=== PATIENT | female | born 1965 ===

== ENCOUNTER 2017-09-23 08:47 | Emergency (ER) | payer MEDICAID ==
[2017-09-23 08:55] VITALS: BP 106/68; PULSE 70; RESP 18; TEMP 97.9; O2SAT 98
--- NOTE | 2017-09-23 09:04 | C.PDOC ---
History Of Present Illness 52 y/o female presents to the ER complaining of a small, fleshy abnormality in the skin of her epigastric region which has been present for the past 2 weeks. Patient reports that she has a history of elective abdominoplasty. Patient denies having other complaints at this time. Time Seen by Provider: 09/23/17 08:58 Chief Complaint (Nursing): Abnormal Skin Integrity History Per: Patient History/Exam Limitations: no limitations Onset/Duration Of Symptoms: Days Current Symptoms Are (Timing): Still Present Severity: Moderate Past Medical History Reviewed: Historical Data, Nursing Documentation, Vital Signs Vital Signs: Last Vital Signs Temp 97.9 F 09/23/17 08:52 Pulse 70 09/23/17 08:52 Resp 18 09/23/17 09:15 BP 106/68 09/23/17 08:52 Pulse Ox 98 09/23/17 12:23 - Medical History PMH: Asthma, HTN Other Surgeries: Hx of surgeries - [facility] Procedures OTHER SKIN & SUBQ I D (11/15/13) Family History: States: No Known Family Hx - Social History Hx Tobacco Use: No Hx Alcohol Use: No Hx Substance Use: No - Immunization History Hx Tetanus Toxoid Vaccination: Yes Hx Influenza Vaccination: No Hx Pneumococcal Vaccination: No Review Of Systems Except As Marked, All Systems Reviewed And Found Negative. Constitutional: Negative for: Fever, Chills Skin: Positive for: Other (small, fleshy abnorml skin growth in epigastric region) Physical Exam - Physical Exam Appears: Non-toxic, No Acute Distress Skin: Normal Color, Warm Head: Atraumatic, Normacephalic Eye(s): bilateral: Normal Inspection Nose: Normal Oral Mucosa: Moist Neck: Supple Chest: Symmetrical Gastrointestinal/Abdominal: Soft, No Tenderness, Other (normal surgical bikini line, relocated umbilicus, small 2x2 cm fleshy, nontender nodule in epigastrium) Neurological/Psych: Oriented x3, Normal Speech, Normal Motor, Normal Sensation ED Course And Treatment O2 Sat by Pulse Oximetry: 98 Medical Decision Making Medical Decision Making: small lipoma vs scar from prior tummy tuck benign for weeks/years LOW susp of infection ok to f/u in Clinic. Disposition Doctor Will See Patient In The: Office Counseled Patient/Family Regarding: Studies Performed, Diagnosis - Disposition Referrals: Tyrell Schafer MD [Medical Doctor] - Disposition: HOME/ ROUTINE Disposition Time: 09:03 Condition: GOOD Additional Instructions: sigue observando la cosa- aparece shahriar lipoma Sigue con mendez medico o' [facility]) Instructions: Lipoma Forms: [employer] (Amharic) Print Language: [place] CITIZEN - Clinical Impression Clinical Impression: Lipoma - Scribe Statement The provider has reviewed the documentation as recorded by the Renetta Sanchez Provider Attestation: All medical record entries made by the Renetta were at my direction and personally dictated by me. I have reviewed the chart and agree that the record accurately reflects my personal performance of the history, physical exam, medical decision making, and the department course for this patient. I have also personally directed, reviewed, and agree with the discharge instructions and disposition.
== END 2017-09-23 09:16 | disposition home or self-care (01) ==
LOC: C.ER 08:47
DX: D17.1 Benign lipomatous neoplasm of skin and subcutaneous tissue of trunk (principal)

== ENCOUNTER 2018-01-19 21:45 | Emergency (ER) | payer MEDICAID ==
[2018-01-19 22:16] VITALS: BP 118/75; PULSE 75; RESP 18; TEMP 98.5; O2SAT 100
[2018-01-19] MEDS ORDERED: Bacitracin 500 Units/gm Oint Foilpak UD TOP ONE (22:29)
[2018-01-19] MEDS ORDERED: Tdap Vaccine 0.5 ml Vial (10-64 yrs) IM ONE ×2 (22:33→22:42)
[2018-01-19] MEDS ORDERED: Bacitracin 500 Units/gm Oint Foilpak UD ONE (22:36)
--- NOTE | 2018-01-19 22:47 | C.PDOC ---
History Of Present Illness 52 years old female with PMH DM presents to ED for complaints of right great toe pain that began one and a half weeks ago. Patient notes that one week prior she got a pedicure and that area was cut. Patient reports she squeezed area and got purulent discharge. Patient reports no change in sugar. Time Seen by Provider: 01/19/18 22:20 Chief Complaint (Nursing): Lower Extremity Problem/Injury History Per: Patient, Family (daughter translated) History/Exam Limitations: no limitations Onset/Duration Of Symptoms: Days Current Symptoms Are (Timing): Still Present Recent travel outside of the [place]: No Past Medical History Reviewed: Historical Data, Nursing Documentation, Vital Signs Vital Signs: Last Vital Signs Temp 98.5 F 01/19/18 22:12 Pulse 75 01/19/18 22:12 Resp 18 01/19/18 22:12 BP 118/75 01/19/18 22:12 Pulse Ox 100 01/20/18 00:21 - Medical History PMH: Asthma, HTN - [facility] Procedures OTHER SKIN & SUBQ I D (11/15/13) Family History: States: Unknown Family Hx - Social History Hx Tobacco Use: No Hx Alcohol Use: No Hx Substance Use: No - Immunization History Hx Tetanus Toxoid Vaccination: Yes Hx Influenza Vaccination: No Hx Pneumococcal Vaccination: No Review Of Systems Except As Marked, All Systems Reviewed And Found Negative. Musculoskeletal: Positive for: Foot Pain Physical Exam - Physical Exam Appears: Well, Non-toxic, No Acute Distress Skin: Other (Mild swelling and erythema to right great toe, lateral aspect of cuticle ) Head: Atraumatic, Normacephalic Eye(s): bilateral: Normal Inspection, EOMI Nose: Normal Oral Mucosa: Moist Neck: Normal ROM, Supple Chest: Symmetrical, No Tenderness Respiratory: No Accessory Muscle Use, Other (speaking in full sentences) Extremity: Normal ROM, No Deformity Extremity: Bilateral: Atraumatic, Normal Color And Temperature, Normal ROM Neurological/Psych: Oriented x3, Normal Speech, Other (No focal deficits ) Gait: Steady ED Course And Treatment O2 Sat by Pulse Oximetry: 100 (RA) Pulse Ox Interpretation: Normal Progress Note: Administered Keflex. - Wound care instructions were given to patient and patient is advised to follow up with Podiatry i n 1-2 days. Instructed strict sugar checks and to return to eR if symtpoms persist or worsen. - Incision & Drainage Of Abscess Prep Used: Sterile Water, Betadine Procedure: Incised W/Scalpel Blade#: (11), Drained Pus, Irrigated Cavity W/ Saline (purelent discharge irrigated) Disposition - Disposition Referrals: Tyrell Schafer MD [Primary Care Provider] - Harpreet Whitehead DPM [Staff Provider] - Disposition: HOME/ ROUTINE Disposition Time: 22:45 Condition: STABLE Additional Instructions: Warm compresses. Follow up with podiatry in 1-2 days. Return to ER if symptoms persist or worsen. 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 - Scribe Statement The provider has reviewed the documentation as recorded by the Scribmarline Barber All medical record entries made by the Rameshibmarline were at my direction and personally dictated by me. I have reviewed the chart and agree that the record accurately reflects my personal performance of the history, physical exam, medical decision making, and the department course for this patient. I have also personally directed, reviewed, and agree with the discharge instructions and disposition.
== END 2018-01-19 23:30 | disposition home or self-care (01) ==
LOC: SUPCPDRO 21:45 → C.ER 21:45
DX: L03.031 Cellulitis of right toe (principal)

== ENCOUNTER 2018-06-06 00:15 | Emergency (ER) | payer MEDICAID ==
[2018-06-06 00:28] VITALS: BP 129/71; PULSE 65; RESP 20; TEMP 98.6; O2SAT 99
--- NOTE | 2018-06-06 01:20 | C.PDOC ---
History Of Present Illness 52 year old female presents to the ED for evaluation of vague abdominal discomfort and loose stools since yesterday. Patient took Nexium and Maalox which slightly improved symptoms. She denies episodes of loose stool today. Patient denies fever, chills, nausea, vomiting. Time Seen by Provider: 06/06/18 01:15 Chief Complaint (Nursing): Abdominal Pain History Per: Patient History/Exam Limitations: no limitations Onset/Duration Of Symptoms: Hrs Current Symptoms Are (Timing): Better Location Of Pain/Discomfort: Diffuse Radiation Of Pain To:: None Associated Symptoms: Diarrhea. denies: Fever, Chills, Nausea, Vomiting Additional History Per: Patient Past Medical History Reviewed: Historical Data, Nursing Documentation, Vital Signs Vital Signs: Last Vital Signs Temp 98.6 F 06/06/18 00:25 Pulse 65 06/06/18 00:25 Resp 20 06/06/18 00:25 BP 129/71 06/06/18 00:25 Pulse Ox 99 06/06/18 00:25 - Medical History PMH: Asthma, HTN Surgical History: No Surg Hx - [facility] Procedures OTHER SKIN & SUBQ I D (11/15/13) Family History: States: Unknown Family Hx - Social History Hx Tobacco Use: No Hx Alcohol Use: No Hx Substance Use: No - Immunization History Hx Tetanus Toxoid Vaccination: Yes Hx Influenza Vaccination: Yes Hx Pneumococcal Vaccination: No Review Of Systems Constitutional: Negative for: Fever, Chills Gastrointestinal: Positive for: Diarrhea, Other (vague abdominal discomfort ). Negative for: Nausea, Vomiting Physical Exam - Physical Exam Appears: Non-toxic, No Acute Distress, Other (initially asleep during examin ation ) Skin: Normal Color, Warm, Dry Head: Atraumatic, Normacephalic Eye(s): bilateral: Normal Inspection Oral Mucosa: Moist Neck: Supple Chest: Symmetrical, No Deformity Cardiovascular: Rhythm Regular, No Murmur Respiratory: Normal Breath Sounds, No Rales, No Rhonchi, No Wheezing Gastrointestinal/Abdominal: Soft, No Tenderness, No Guarding, No Rebound Extremity: Normal ROM, Capillary Refill (less than 2 seconds ) Neurological/Psych: Oriented x3, Normal Speech, Normal Cognition ED Course And Treatment O2 Sat by Pulse Oximetry: 99 (on RA) Pulse Ox Interpretation: Normal Progress Note: Bentyl PO, Maalox PO, Pepcid PO, and Zofran PO given. Medical Decision Making Medical Decision Making: mild diarrhea, resolved yesterday asleep on initial eval benign abd maalox/nexium given and educated. Disposition Doctor Will See Patient In The: Office Counseled Patient/Family Regarding: Studies Performed, Diagnosis - Disposition Referrals: Tyrell Schafer MD [Medical Doctor] - Disposition: HOME/ ROUTINE Disposition Time: 01:20 Condition: GOOD Additional Instructions: maalox 30 cc 5-7 veces al chula dieta blanda de BRAT: Bananas, arroz taylor, manzana, kincaid tostada Edita much agua/Gatorade Pepcid/Omeprazole cada noche para bajer el acides del estomago Zofran ODT 4 mg- shahriar tableta cada 8 horas en beatriz de nausea/vomitos Sigue con mendez medico ezra necessario Prescriptions: Ondansetron ODT [Zofran ODT] 4 mg PO Q6H PRN #6 odt PRN Reason: Nausea/Vomiting Instructions: Diarrhea in Adolescents and Adults Forms: [employer] (Danish) Print Language: ARABIC - Clinical Impression Clinical Impression: Diarrhea - Scribe Statement The provider has reviewed the documentation as recorded by the Scribe (Elissa Serna) Provider Attestation: All medical record entries made by the Scribe were at my direction and personally dictated by me. I have reviewed the chart and agree that the record accurately reflects my personal performance of the history, physical exam, medical decision making, and the department course for this patient. I have also personally directed, reviewed, and agree with the discharge instructions and disposition.
[2018-06-06] MEDS ORDERED: Alum-Mag Hydrox-Simethicone Susp (30 mL) PO STA (01:22)
[2018-06-06] MEDS ORDERED: Alum-Mag Hydrox-Simethicone Susp (30 mL) ONE (01:33)
== END 2018-06-06 02:48 | disposition home or self-care (01) ==
LOC: C.ER 00:15
DX: R19.7 Diarrhea, unspecified (principal)